=== PATIENT | female | born 1930 | race Caucasian/White ===

== ENCOUNTER 2018-08-15 09:16 | Inpatient (IN) | payer BC, MEDICARE ==
[2018-08-15] MEDS: IPRATROPIUM (NEB) 0.5 MG/2.5 ML AMP INH (10:01)
[2018-08-15] MEDS: ALBUTEROL 0.083% (NEB) 2.5 MG/3 ML AMP INH (10:01)
[2018-08-15 10:24] LABS: ADD MAN DIFF? NO
[2018-08-15 10:32] LABS: WHITE BLOOD COUNT 7.4 10^3/ul (4.8-10.8)
[2018-08-15 10:32] LABS: BASOPHIL # 0.1 10^3/ul (0.0-0.1); BASOPHILS % 0.9 % (0.0-2.0); EOSINOPHILS # 0.3 10^3/ul (0.0-0.5); EOSINOPHILS % 4.3 % (0.0-7.0); HEMOGLOBIN 12.3 g/dl (12.0-16.0); LYMPHOCYTES # 0.7 10^3/ul (0.8-2.9); LYMPHOCYTES % 9.5 % (15.0-51.0); MEAN CORPUSCULAR HEMOGLOBIN 29.5 pg (29.0-33.0); MEAN CORPUSCULAR HGB CONC 34.2 g/dl (32.0-37.0); MEAN CORPUSCULAR VOLUME 86.3 fl (82.0-101.0); MEAN PLATELET VOLUME 7.9 fl (7.4-10.4); MONOCYTE # 0.6 10^3/ul (0.3-0.9); MONOCYTES % 7.6 % (0.0-11.0); NEUTROPHIL # 5.7 10^3/ul (1.6-7.5); NEUTROPHILS % 77.3 % (39.0-77.0); PLATELET COUNT 355 10^3/UL (140-415); RED BLOOD COUNT 4.17 10^6/ul (4.20-5.40); RED CELL DISTRIBUTION WIDTH 13.4 % (11.5-14.5)
[2018-08-15] MEDS: SOD CHLORIDE 0.9% 500 ML IV (10:40)
[2018-08-15] MEDS: CEFTRIAXONE 1 GM/50 ML (PMX) 50 ML IVPB (10:41)
[2018-08-15 10:58] LABS: ANION GAP 12 (5-13); BLOOD UREA NITROGEN 8 mg/dl (7-20); CALCIUM 8.9 mg/dl (8.4-10.2); CARBON DIOXIDE 27 mmol/L (21-31); CHLORIDE 85 mmol/L (97-110); CREATININE 0.54 mg/dl (0.44-1.00); GLUCOSE 126 mg/dl (70-220); POTASSIUM 4.5 mmol/L (3.5-5.1); SODIUM 124 mmol/L (135-144)
[2018-08-15 11:07] LABS: TROPONIN-I < 0.012 ng/ml (0.000-0.120)
[2018-08-15] MEDS: AZITHROMYCIN 500MG/NS (PMX) 250 ML IV (11:30)
[2018-08-15 11:51] LABS: LACTIC ACID 0.9 mmol/L (0.5-2.0)
[2018-08-15] MEDS ORDERED: ONDANSETRON 4 MG INJ IV (12:00)
[2018-08-15] MEDS ORDERED: ACETAMINOPHEN 325 MG TAB PO (12:00)
[2018-08-15] MEDS: DEXAMETHASONE 10 MG/ML 1 ML INJ IV (12:37)
[2018-08-15 14:02] LABS: LACTIC ACID 1.2 mmol/L (0.5-2.0)
[2018-08-15] MEDS ORDERED: NACL 0.9% 3 ML SYG IV (16:00)
[2018-08-15] MEDS: SOD CHLORIDE 0.9% 1,000 ML IV (17:18)
[2018-08-15] MEDS: ACETAMINOPHEN 325 MG TAB PO ×2 (17:19→23:35)
[2018-08-15] MEDS: LEVOFLOXACIN 750MG/D5W (PMX) 150 ML IVPB (18:35)
[2018-08-15] MEDS ORDERED: ALBUTEROL/IPRATROPIUM (NEB) 3 ML AMP HHN (20:00)
[2018-08-15] MEDS: GABAPENTIN 300 MG CAP PO (21:00)
[2018-08-15] MEDS: NYSTATIN 30 GM POWDER BTL TOP (21:01)
[2018-08-15] MEDS: ALBUTEROL/IPRATROPIUM (NEB) 3 ML AMP HHN (21:04)
[2018-08-15] MEDS: GUAIFENESIN 20 MG/ML 5ML CUP PO (21:26)
[2018-08-15] MEDS: HEPARIN 5,000 UNIT/1 ML VIAL SC (21:29)
[2018-08-16] MEDS: ALBUTEROL/IPRATROPIUM (NEB) 3 ML AMP HHN ×5 (01:49→22:30)
[2018-08-16] MEDS: HEPARIN 5,000 UNIT/1 ML VIAL SC ×3 (05:54→21:39)
[2018-08-16 06:12] LABS: ADD MAN DIFF? NO
[2018-08-16] MEDS: SOD CHLORIDE 0.9% 1,000 ML IV ×3 (06:18→20:36)
[2018-08-16 06:23] LABS: WHITE BLOOD COUNT 4.6 10^3/ul (4.8-10.8)
[2018-08-16 06:23] LABS: ABNORMAL IP MESSAGE 1; BASOPHILS % 0.4 % (0.0-2.0); HEMOGLOBIN 11.5 g/dl (12.0-16.0); LYMPHOCYTES # 0.5 10^3/ul (0.8-2.9); LYMPHOCYTES % 11.9 % (15.0-51.0); MEAN CORPUSCULAR HEMOGLOBIN 29.6 pg (29.0-33.0); MEAN CORPUSCULAR HGB CONC 34.8 g/dl (32.0-37.0); MEAN CORPUSCULAR VOLUME 85.1 fl (82.0-101.0); MEAN PLATELET VOLUME 8.2 fl (7.4-10.4); MONOCYTE # 0.6 10^3/ul (0.3-0.9); NEUTROPHIL # 3.4 10^3/ul (1.6-7.5); NEUTROPHILS % 73.8 % (39.0-77.0); PLATELET COUNT 320 10^3/UL (140-415); RED BLOOD COUNT 3.88 10^6/ul (4.20-5.40); RED CELL DISTRIBUTION WIDTH 13.3 % (11.5-14.5)
[2018-08-16 06:37] LABS: POSITIVE DIFF @See below
[2018-08-16 06:54] LABS: ALANINE AMINOTRANSFERASE 28 IU/L (13-69); ALBUMIN 3.6 g/dl (3.3-4.9); ALBUMIN/GLOBULIN RATIO 1.16; ALKALINE PHOSPHATASE 41 IU/L (42-121); ANION GAP 11 (5-13); ASPARTATE AMINO TRANSFERASE 28 IU/L (15-46); BILIRUBIN,INDIRECT 0.8 mg/dl (0-1.1); BILIRUBIN,TOTAL 0.8 mg/dl (0.2-1.3); BLOOD UREA NITROGEN 7 mg/dl (7-20); CALCIUM 8.6 mg/dl (8.4-10.2); CARBON DIOXIDE 24 mmol/L (21-31); CHLORIDE 90 mmol/L (97-110); CHOL/HDL RATIO 1.8 RATIO; CHOLESTEROL 125 mg/dl (100-200); CREATININE 0.55 mg/dl (0.44-1.00); GLUCOSE 108 mg/dl (70-220); HDL CHOLESTEROL 67 mg/dl (33-92); LDL CHOLESTEROL,CALCULATED 49 mg/dl; MAGNESIUM 1.8 mg/dl (1.7-2.5); PHOSPHORUS 2.6 mg/dl (2.5-4.9); POTASSIUM 4.1 mmol/L (3.5-5.1); SODIUM 125 mmol/L (135-144); TOTAL PROTEIN 6.7 g/dl (6.1-8.1); TRIGLYCERIDES 46 mg/dl (0-149)
[2018-08-16] MEDS ORDERED: VANCOMYCIN IV PER PHARMACY XX (07:00)
[2018-08-16 07:11] LABS: FREE THYROXINE INDEX (Calc) 2.69 ug/ml (0.65-3.89); T3 UPTAKE 40.1 % (23.5-40.5); T4 (THYROXINE) 6.7 ug/dl (5.5-11.0)
[2018-08-16] MEDS: VANCOMYCIN HCL 1.25 GM in SOD CHLORIDE 0.9% 250 ML IVPB (08:53)
[2018-08-16] MEDS: GABAPENTIN 300 MG CAP PO ×3 (08:54→21:36)
[2018-08-16] MEDS: FLUTICASONE/VILANTEROL 100-25 INH (08:54)
[2018-08-16] MEDS: TIOTROPIUM 18 MCG CAPSULE INHA DEV INH (08:54)
[2018-08-16] MEDS: FAMOTIDINE 20 MG INJ IV ×2 (08:54→21:35)
[2018-08-16] MEDS: SPIRONOLACTONE 25 MG TAB PO (08:54)
[2018-08-16] MEDS: METOPROLOL (XL) 50 MG TAB PO (08:55)
[2018-08-16] MEDS: LOSARTAN 50 MG TAB PO (08:55)
[2018-08-16] MEDS: NYSTATIN 30 GM POWDER BTL TOP ×2 (08:56→21:36)
[2018-08-16] MEDS: SODIUM CHLORIDE 1 GM TAB PO ×2 (13:23→21:35)
[2018-08-16] MEDS: GUAIFENESIN 20 MG/ML 5ML CUP PO (21:43)
[2018-08-17] MEDS: ACETAMINOPHEN 325 MG TAB PO ×2 (00:40→23:16)
[2018-08-17] MEDS: ALBUTEROL/IPRATROPIUM (NEB) 3 ML AMP HHN ×4 (03:35→21:53)
[2018-08-17] MEDS: SOD CHLORIDE 0.9% 1,000 ML IV ×3 (06:41→23:17)
[2018-08-17] MEDS: HEPARIN 5,000 UNIT/1 ML VIAL SC ×3 (06:48→21:04)
[2018-08-17] MEDS: GABAPENTIN 300 MG CAP PO ×3 (08:36→21:00)
[2018-08-17] MEDS: FAMOTIDINE 20 MG INJ IV ×2 (08:36→21:00)
[2018-08-17] MEDS: TIOTROPIUM 18 MCG CAPSULE INHA DEV INH (08:36)
[2018-08-17] MEDS: FLUTICASONE/VILANTEROL 100-25 INH (08:36)
[2018-08-17] MEDS: SPIRONOLACTONE 25 MG TAB PO (08:37)
[2018-08-17] MEDS: LOSARTAN 50 MG TAB PO (08:37)
[2018-08-17] MEDS: SODIUM CHLORIDE 1 GM TAB PO ×3 (08:37→21:00)
[2018-08-17] MEDS: METOPROLOL (XL) 50 MG TAB PO (08:37)
[2018-08-17] MEDS: NYSTATIN 30 GM POWDER BTL TOP ×2 (08:38→21:00)
[2018-08-17] MEDS: VANCOMYCIN 1 GM 250 ML IVPB (09:08)
[2018-08-17] MEDS: GUAIFENESIN 20 MG/ML 5ML CUP PO (21:03)
[2018-08-18] MEDS: SOD CHLORIDE 0.9% 1,000 ML IV (01:12)
[2018-08-18] MEDS: ALBUTEROL/IPRATROPIUM (NEB) 3 ML AMP HHN ×4 (02:00→21:25)
[2018-08-18 05:45] LABS: ADD MAN DIFF? NO
[2018-08-18 05:46] LABS: ABNORMAL IP MESSAGE 1; BASOPHIL # 0.1 10^3/ul (0.0-0.1); BASOPHILS % 0.8 % (0.0-2.0); EOSINOPHILS # 0.2 10^3/ul (0.0-0.5); EOSINOPHILS % 2.4 % (0.0-7.0); HEMATOCRIT 36.5 % (37.0-47.0); HEMOGLOBIN 11.8 g/dl (12.0-16.0); LYMPHOCYTES # 0.5 10^3/ul (0.8-2.9); LYMPHOCYTES % 5.1 % (15.0-51.0); MEAN CORPUSCULAR HGB CONC 32.3 g/dl (32.0-37.0); MEAN CORPUSCULAR VOLUME 89.7 fl (82.0-101.0); MONOCYTE # 0.9 10^3/ul (0.3-0.9); MONOCYTES % 10.1 % (0.0-11.0); NEUTROPHIL # 7.5 10^3/ul (1.6-7.5); NEUTROPHILS % 80.9 % (39.0-77.0); PLATELET COUNT 338 10^3/UL (140-415); RED BLOOD COUNT 4.07 10^6/ul (4.20-5.40); RED CELL DISTRIBUTION WIDTH 14.2 % (11.5-14.5)
[2018-08-18 05:46] LABS: WHITE BLOOD COUNT 9.2 10^3/ul (4.8-10.8)
[2018-08-18 05:48] LABS: POSITIVE DIFF @See below
[2018-08-18 06:09] LABS: ANION GAP 6 (5-13); BLOOD UREA NITROGEN 7 mg/dl (7-20); CALCIUM 8.1 mg/dl (8.4-10.2); CARBON DIOXIDE 29 mmol/L (21-31); CHLORIDE 102 mmol/L (97-110); CREATININE 0.52 mg/dl (0.44-1.00); GLUCOSE 117 mg/dl (70-220); POTASSIUM 3.6 mmol/L (3.5-5.1); SODIUM 137 mmol/L (135-144)
[2018-08-18] MEDS: HEPARIN 5,000 UNIT/1 ML VIAL SC ×3 (06:36→22:29)
[2018-08-18] MEDS: GUAIFENESIN 20 MG/ML 5ML CUP PO ×2 (06:37→21:20)
[2018-08-18] MEDS: ACETAMINOPHEN 325 MG TAB PO ×2 (06:37→16:47)
[2018-08-18] MEDS: ALENDRONATE 70 MG TAB PO (08:49)
[2018-08-18] MEDS: TIOTROPIUM 18 MCG CAPSULE INHA DEV INH (08:50)
[2018-08-18] MEDS: FLUTICASONE/VILANTEROL 100-25 INH (08:50)
[2018-08-18] MEDS: NYSTATIN 30 GM POWDER BTL TOP ×2 (08:51→21:20)
[2018-08-18] MEDS: VANCOMYCIN 1 GM 250 ML IVPB (08:52)
[2018-08-18] MEDS: GABAPENTIN 300 MG CAP PO ×3 (08:52→21:20)
[2018-08-18] MEDS: SODIUM CHLORIDE 1 GM TAB PO ×3 (08:52→21:20)
[2018-08-18] MEDS: SPIRONOLACTONE 25 MG TAB PO (08:53)
[2018-08-18] MEDS: METOPROLOL (XL) 50 MG TAB PO (08:53)
[2018-08-18] MEDS: FAMOTIDINE 20 MG INJ IV (08:53)
[2018-08-18] MEDS: LOSARTAN 50 MG TAB PO (08:53)
[2018-08-18 15:31] LABS: B-TYPE NATRIURETIC PEPTIDE 1800 PG/ML (0-450)
[2018-08-18] MEDS: FUROSEMIDE 20 MG INJ IV (16:34)
[2018-08-18] MEDS: hydrALAzine 20 MG INJ IV (16:48)
[2018-08-18] MEDS: METHYLPREDNISOLONE 125 MG INJ IV (17:20)
[2018-08-18] MEDS: SOD CHLORIDE 0.9% 100 ML (17:45)
[2018-08-18] MEDS: IOHEXOL 100 ML (17:45)
[2018-08-18] MEDS: FAMOTIDINE 20 MG TAB PO (21:20)
[2018-08-18] MEDS: POLYETHYLENE GLYCOL 17 GM PACKET PO (21:20)
[2018-08-18] MEDS: LABETALOL 100 MG TAB PO (22:09)
[2018-08-19] MEDS: METHYLPREDNISOLONE 125 MG INJ IV ×2 (00:08→06:00)
[2018-08-19] MEDS: ALBUTEROL/IPRATROPIUM (NEB) 3 ML AMP HHN ×5 (02:10→20:00)
[2018-08-19] MEDS: ACETAMINOPHEN 325 MG TAB PO ×2 (03:14→10:35)
[2018-08-19] MEDS: GUAIFENESIN 20 MG/ML 5ML CUP PO ×2 (03:14→09:53)
[2018-08-19 05:21] LABS: ADD MAN DIFF? NO
[2018-08-19 05:23] LABS: ABNORMAL IP MESSAGE 1; BASOPHILS % 0.3 % (0.0-2.0); HEMATOCRIT 39.8 % (37.0-47.0); HEMOGLOBIN 13.3 g/dl (12.0-16.0); LYMPHOCYTES # 0.3 10^3/ul (0.8-2.9); MEAN CORPUSCULAR HEMOGLOBIN 29.6 pg (29.0-33.0); MEAN CORPUSCULAR HGB CONC 33.4 g/dl (32.0-37.0); MEAN CORPUSCULAR VOLUME 88.4 fl (82.0-101.0); MEAN PLATELET VOLUME 7.8 fl (7.4-10.4); MONOCYTE # 0.1 10^3/ul (0.3-0.9); MONOCYTES % 0.9 % (0.0-11.0); NEUTROPHIL # 6.2 10^3/ul (1.6-7.5); NEUTROPHILS % 93.3 % (39.0-77.0); PLATELET COUNT 341 10^3/UL (140-415); RED CELL DISTRIBUTION WIDTH 13.8 % (11.5-14.5)
[2018-08-19 05:23] LABS: WHITE BLOOD COUNT 6.6 10^3/ul (4.8-10.8)
[2018-08-19 05:31] LABS: POSITIVE DIFF @See below
[2018-08-19 06:00] LABS: ANION GAP 8 (5-13); BLOOD UREA NITROGEN 9 mg/dl (7-20); CALCIUM 8.9 mg/dl (8.4-10.2); CARBON DIOXIDE 35 mmol/L (21-31); CHLORIDE 93 mmol/L (97-110); CREATININE 0.46 mg/dl (0.44-1.00); GLUCOSE 150 mg/dl (70-220); POTASSIUM 4.3 mmol/L (3.5-5.1); SODIUM 136 mmol/L (135-144)
[2018-08-19] MEDS: HEPARIN 5,000 UNIT/1 ML VIAL SC ×3 (06:00→21:07)
[2018-08-19 06:06] LABS: PHOSPHORUS 2.8 mg/dl (2.5-4.9)
[2018-08-19 08:43] LABS: VANCOMYCIN,TROUGH 6.5 ug/ml (10.0-20.0)
[2018-08-19 09:44] LABS: AADO2 Arterial 78.4 mmHg (7.0-24.0); Allen Test ACCEPTAB; Arterial Base Excess 6.5 mmol/L (-3.0-3); Arterial Blood Gas Oxygen Sat 93.7 mmHG (95.0-100.0); Arterial COHb 0.7 % (0.0-3.0); Arterial Fraction of Oxyhgb 92.8 % (93.0-99.0); Arterial HCO3 33.5 mmol/L (22.0-26.0); Arterial MetHb 0.3 % (0.0-1.5); Arterial pCO2 57.9 mmhg (35-45); MODE NASAL CANNULA; Site Right Radial
[2018-08-19] MEDS: VANCOMYCIN 1 GM 250 ML IVPB (09:53)
[2018-08-19] MEDS: POLYETHYLENE GLYCOL 17 GM PACKET PO ×2 (09:53→20:50)
[2018-08-19] MEDS: FAMOTIDINE 20 MG TAB PO ×2 (09:53→20:51)
[2018-08-19] MEDS: SPIRONOLACTONE 25 MG TAB PO (09:53)
[2018-08-19] MEDS: LOSARTAN 50 MG TAB PO (09:54)
[2018-08-19] MEDS: SODIUM CHLORIDE 1 GM TAB PO ×3 (09:54→20:50)
[2018-08-19] MEDS: TIOTROPIUM 18 MCG CAPSULE INHA DEV INH (09:54)
[2018-08-19] MEDS: METOPROLOL (XL) 50 MG TAB PO (09:54)
[2018-08-19] MEDS: FUROSEMIDE 20 MG INJ IV ×2 (09:55→17:29)
[2018-08-19] MEDS: GABAPENTIN 300 MG CAP PO ×3 (09:56→20:51)
[2018-08-19] MEDS: NYSTATIN 30 GM POWDER BTL TOP ×2 (09:57→20:51)
[2018-08-19] MEDS: FLUTICASONE/VILANTEROL 100-25 INH (09:58)
[2018-08-19] MEDS: LEVOFLOXACIN 500MG/D5W (PMX) 100 ML IVPB (13:16)
[2018-08-19] MEDS: ACETYLCYSTEINE 20% 4 ML VIAL NEB ×2 (14:10→19:59)
[2018-08-19] MEDS: METHYLPREDNISOLONE 40 MG INJ IV ×2 (14:24→20:51)
[2018-08-19] MEDS: BISACODYL (EC) 5 MG TAB PO (14:36)
[2018-08-19 20:47] LABS: AADO2 Arterial 144.2 mmHg (7.0-24.0); Allen Test ACCEPTAB; Arterial Base Excess 9.3 mmol/L (-3.0-3); Arterial Blood Gas Oxygen Sat 95.7 mmHG (95.0-100.0); Arterial COHb 0.6 % (0.0-3.0); Arterial Fraction of Oxyhgb 95.1 % (93.0-99.0); Arterial HCO3 35.4 mmol/L (22.0-26.0); Arterial MetHb 0 % (0.0-1.5); Arterial pCO2 53.8 mmhg (35-45); MODE MASK - BIPAP; Site Left Radial
[2018-08-19] MEDS ORDERED: VANCOMYCIN 750 MG (PMX) 250 ML IVPB (21:00)
[2018-08-20] MEDS: ALBUTEROL/IPRATROPIUM (NEB) 3 ML AMP HHN ×6 (01:15→21:26)
[2018-08-20] MEDS: ACETYLCYSTEINE 20% 4 ML VIAL NEB ×4 (01:15→21:26)
[2018-08-20] MEDS: METHYLPREDNISOLONE 40 MG INJ IV ×3 (05:33→20:11)
[2018-08-20] MEDS: HEPARIN 5,000 UNIT/1 ML VIAL SC ×3 (06:16→20:16)
[2018-08-20 06:52] LABS: ADD MAN DIFF? NO
[2018-08-20 07:00] LABS: ABNORMAL IP MESSAGE 1; BASOPHILS % 0.1 % (0.0-2.0); HEMATOCRIT 40.7 % (37.0-47.0); HEMOGLOBIN 13.5 g/dl (12.0-16.0); LYMPHOCYTES # 0.5 10^3/ul (0.8-2.9); LYMPHOCYTES % 6.6 % (15.0-51.0); MEAN CORPUSCULAR HEMOGLOBIN 29.1 pg (29.0-33.0); MEAN CORPUSCULAR HGB CONC 33.2 g/dl (32.0-37.0); MEAN CORPUSCULAR VOLUME 87.7 fl (82.0-101.0); MEAN PLATELET VOLUME 7.8 fl (7.4-10.4); MONOCYTE # 0.5 10^3/ul (0.3-0.9); MONOCYTES % 7.1 % (0.0-11.0); NEUTROPHIL # 6.1 10^3/ul (1.6-7.5); NEUTROPHILS % 85.6 % (39.0-77.0); PLATELET COUNT 404 10^3/UL (140-415); RED BLOOD COUNT 4.64 10^6/ul (4.20-5.40); RED CELL DISTRIBUTION WIDTH 13.7 % (11.5-14.5)
[2018-08-20 07:00] LABS: WHITE BLOOD COUNT 7.2 10^3/ul (4.8-10.8)
[2018-08-20 07:04] LABS: POSITIVE DIFF @See below
[2018-08-20 07:17] LABS: ANION GAP 8 (5-13); BLOOD UREA NITROGEN 20 mg/dl (7-20); CALCIUM 8.9 mg/dl (8.4-10.2); CARBON DIOXIDE 36 mmol/L (21-31); CHLORIDE 92 mmol/L (97-110); GLUCOSE 134 mg/dl (70-220); MAGNESIUM 2.2 mg/dl (1.7-2.5); POTASSIUM 3.8 mmol/L (3.5-5.1); SODIUM 136 mmol/L (135-144)
[2018-08-20 07:17] LABS: PHOSPHORUS 3.3 mg/dl (2.5-4.9)
[2018-08-20 07:49] LABS: ADD UMIC YES; UR AMORPHOUS CRYSTAL FEW /HPF (NONE SEEN); UR ASCORBIC ACID NEGATIVE (NEGATIVE); UR BILIRUBIN (Dip) NEGATIVE (NEGATIVE); UR BLOOD (Dip) NEGATIVE (NEGATIVE); UR CLARITY SLIGHTLY CLOUDY (CLEAR); UR COLOR YELLOW (YELLOW); UR GLUCOSE (Dip) NEGATIVE (NEGATIVE); UR KETONES (Dip) 1+ mg/dL (NEGATIVE); UR LEUKOCYTE ESTERASE (Dip) NEGATIVE Leu/ul (NEGATIVE); UR MUCUS FEW /HPF (NONE SEEN); UR NITRITE (Dip) NEGATIVE (NEGATIVE); UR RBC 1 /HPF (0-5); UR SPECIFIC GRAVITY (Dip) 1.019 (1.003-1.030); UR TOTAL PROTEIN (Dip) 2+ mg/dl (NEGATIVE); UR UROBILINOGEN (Dip) NEGATIVE (NEGATIVE); UR WBC 3 /HPF (0-5)
[2018-08-20] MEDS: NYSTATIN 30 GM POWDER BTL TOP ×2 (08:33→20:11)
[2018-08-20] MEDS: FLUTICASONE/VILANTEROL 100-25 INH (08:33)
[2018-08-20] MEDS: POLYETHYLENE GLYCOL 17 GM PACKET PO ×2 (08:35→20:11)
[2018-08-20] MEDS: SPIRONOLACTONE 25 MG TAB PO (08:36)
[2018-08-20] MEDS: GABAPENTIN 300 MG CAP PO ×3 (08:36→20:11)
[2018-08-20] MEDS: LOSARTAN 50 MG TAB PO (08:36)
[2018-08-20] MEDS: SODIUM CHLORIDE 1 GM TAB PO ×3 (08:36→20:11)
[2018-08-20] MEDS: FAMOTIDINE 20 MG TAB PO ×2 (08:37→20:11)
[2018-08-20] MEDS: METOPROLOL (XL) 50 MG TAB PO (08:37)
[2018-08-20] MEDS: TIOTROPIUM 18 MCG CAPSULE INHA DEV INH (10:06)
[2018-08-20 11:36] LABS: B-TYPE NATRIURETIC PEPTIDE 1060 PG/ML (0-450)
[2018-08-20] MEDS: FUROSEMIDE 20 MG INJ IV (11:58)
[2018-08-20] MEDS: LEVOFLOXACIN 500MG/D5W (PMX) 100 ML IVPB (11:58)
[2018-08-20] MEDS: FLUCONAZOLE 100 MG TAB PO (15:43)
[2018-08-20] MEDS: CEFEPIME 1GM/50 ML (PMX) 50 ML IVPB ×2 (15:43→23:08)
[2018-08-20] MEDS: BISACODYL (EC) 5 MG TAB PO (15:43)
[2018-08-20] MEDS ORDERED: LORAZEPAM 1 MG TAB PO (22:30)
[2018-08-20] MEDS ORDERED: ACETAMINOPHEN 325 MG TAB PO (22:30)
[2018-08-21] MEDS: ACETYLCYSTEINE 20% 4 ML VIAL NEB ×4 (01:44→19:59)
[2018-08-21] MEDS: ALBUTEROL/IPRATROPIUM (NEB) 3 ML AMP HHN ×6 (01:44→19:59)
[2018-08-21] MEDS: METHYLPREDNISOLONE 40 MG INJ IV ×3 (04:41→21:07)
[2018-08-21] MEDS: HEPARIN 5,000 UNIT/1 ML VIAL SC ×3 (04:46→21:51)
[2018-08-21 08:11] LABS: ADD MAN DIFF? NO
[2018-08-21 08:22] LABS: ABNORMAL IP MESSAGE 1; BASOPHILS % 0.2 % (0.0-2.0); HEMATOCRIT 39.9 % (37.0-47.0); HEMOGLOBIN 13.2 g/dl (12.0-16.0); LYMPHOCYTES # 0.3 10^3/ul (0.8-2.9); MEAN CORPUSCULAR HEMOGLOBIN 29.5 pg (29.0-33.0); MEAN CORPUSCULAR HGB CONC 33.1 g/dl (32.0-37.0); MEAN CORPUSCULAR VOLUME 89.3 fl (82.0-101.0); MEAN PLATELET VOLUME 7.8 fl (7.4-10.4); MONOCYTE # 0.6 10^3/ul (0.3-0.9); MONOCYTES % 5.9 % (0.0-11.0); NEUTROPHIL # 8.4 10^3/ul (1.6-7.5); NEUTROPHILS % 90.4 % (39.0-77.0); PLATELET COUNT 395 10^3/UL (140-415); RED BLOOD COUNT 4.47 10^6/ul (4.20-5.40); RED CELL DISTRIBUTION WIDTH 13.5 % (11.5-14.5)
[2018-08-21 08:22] LABS: WHITE BLOOD COUNT 9.3 10^3/ul (4.8-10.8)
[2018-08-21 08:23] LABS: POSITIVE DIFF @See below
[2018-08-21] MEDS: CEFEPIME 1GM/50 ML (PMX) 50 ML IVPB ×2 (08:32→20:42)
[2018-08-21] MEDS: FLUTICASONE/VILANTEROL 100-25 INH (08:34)
[2018-08-21] MEDS: POLYETHYLENE GLYCOL 17 GM PACKET PO ×2 (08:34→20:42)
[2018-08-21] MEDS: LOSARTAN 50 MG TAB PO (08:35)
[2018-08-21] MEDS: FAMOTIDINE 20 MG TAB PO ×2 (08:36→20:42)
[2018-08-21] MEDS: FLUCONAZOLE 100 MG TAB PO (08:36)
[2018-08-21] MEDS: GABAPENTIN 300 MG CAP PO ×3 (08:36→20:42)
[2018-08-21] MEDS: SODIUM CHLORIDE 1 GM TAB PO ×3 (08:36→20:42)
[2018-08-21] MEDS: NYSTATIN 30 GM POWDER BTL TOP ×2 (08:36→21:09)
[2018-08-21] MEDS: METOPROLOL (XL) 50 MG TAB PO (08:36)
[2018-08-21] MEDS: SPIRONOLACTONE 25 MG TAB PO (08:36)
[2018-08-21 08:47] LABS: ANION GAP 7 (5-13); BLOOD UREA NITROGEN 28 mg/dl (7-20); CALCIUM 8.6 mg/dl (8.4-10.2); CARBON DIOXIDE 38 mmol/L (21-31); CHLORIDE 94 mmol/L (97-110); CREATININE 0.62 mg/dl (0.44-1.00); GLUCOSE 141 mg/dl (70-220); POTASSIUM 3.3 mmol/L (3.5-5.1); SODIUM 139 mmol/L (135-144)
[2018-08-21 10:13] LABS: PHOSPHORUS 3.8 mg/dl (2.5-4.9)
[2018-08-21 10:13] LABS: MAGNESIUM 2.4 mg/dl (1.7-2.5)
[2018-08-21] MEDS: MAGNESIUM CITRATE 300 ML BTL PO (10:44)
[2018-08-21] MEDS: POTASSIUM CHLORIDE 20 MEQ POWDER FOR ORAL SOLN PO (11:25)
[2018-08-21] MEDS: FUROSEMIDE 20 MG INJ IV (11:25)
[2018-08-21] MEDS: ONDANSETRON 4 MG INJ IV (20:52)
[2018-08-22] MEDS: ALBUTEROL/IPRATROPIUM (NEB) 3 ML AMP HHN ×6 (01:21→19:26)
[2018-08-22] MEDS: ACETYLCYSTEINE 20% 4 ML VIAL NEB ×4 (01:21→19:26)
[2018-08-22 03:12] LABS: AADO2 Arterial 483.7 mmHg (7.0-24.0); Arterial Base Excess 12.8 mmol/L (-3.0-3); Arterial Blood Gas Oxygen Sat 98.2 mmHG (95.0-100.0); Arterial COHb 0.3 % (0.0-3.0); Arterial Fraction of Oxyhgb 97.8 % (93.0-99.0); Arterial HCO3 43.8 mmol/L (22.0-26.0); Arterial MetHb 0.1 % (0.0-1.5); Blood Gas PS 10; MODE MASK - BIPAP; Site Right Brachial
[2018-08-22] MEDS: METHYLPREDNISOLONE 40 MG INJ IV ×3 (06:30→21:08)
[2018-08-22] MEDS: HEPARIN 5,000 UNIT/1 ML VIAL SC ×3 (07:19→21:10)
[2018-08-22 07:40] LABS: Allen Test ACCEPTAB; Arterial Base Excess 13.8 mmol/L (-3.0-3); Arterial Blood Gas Oxygen Sat 94.7 mmHG (95.0-100.0); Arterial COHb 0.4 % (0.0-3.0); Arterial Fraction of Oxyhgb 94.2 % (93.0-99.0); Arterial HCO3 42.4 mmol/L (22.0-26.0); Arterial MetHb 0.1 % (0.0-1.5); Blood Gas IEPAP 18/5; Blood Gas PS 13; MODE MASK - BIPAP; Site Right Radial
[2018-08-22] MEDS: FLUCONAZOLE 100 MG TAB PO (08:01)
[2018-08-22] MEDS: LOSARTAN 50 MG TAB PO (08:01)
[2018-08-22] MEDS: METOPROLOL (XL) 50 MG TAB PO (08:02)
[2018-08-22] MEDS: FLUTICASONE/VILANTEROL 100-25 INH (08:03)
[2018-08-22] MEDS: SPIRONOLACTONE 25 MG TAB PO (08:03)
[2018-08-22] MEDS: GABAPENTIN 300 MG CAP PO ×3 (08:03→21:07)
[2018-08-22] MEDS: SODIUM CHLORIDE 1 GM TAB PO ×3 (08:03→21:07)
[2018-08-22] MEDS: FAMOTIDINE 20 MG TAB PO ×2 (08:03→21:08)
[2018-08-22] MEDS: NYSTATIN 30 GM POWDER BTL TOP (08:04)
[2018-08-22] MEDS: CEFEPIME 1GM/50 ML (PMX) 50 ML IVPB ×2 (08:04→21:07)
[2018-08-22] MEDS: POLYETHYLENE GLYCOL 17 GM PACKET PO ×2 (08:04→21:00)
[2018-08-22 08:28] LABS: ADD MAN DIFF? NO
[2018-08-22 08:38] LABS: WHITE BLOOD COUNT 8.4 10^3/ul (4.8-10.8)
[2018-08-22 08:38] LABS: ABNORMAL IP MESSAGE 1; BASOPHILS % 0.1 % (0.0-2.0); HEMATOCRIT 42.7 % (37.0-47.0); HEMOGLOBIN 13.3 g/dl (12.0-16.0); LYMPHOCYTES # 0.3 10^3/ul (0.8-2.9); LYMPHOCYTES % 3.9 % (15.0-51.0); MEAN CORPUSCULAR HEMOGLOBIN 28.7 pg (29.0-33.0); MEAN CORPUSCULAR HGB CONC 31.1 g/dl (32.0-37.0); MONOCYTE # 0.6 10^3/ul (0.3-0.9); MONOCYTES % 7.4 % (0.0-11.0); NEUTROPHIL # 7.3 10^3/ul (1.6-7.5); NEUTROPHILS % 87.9 % (39.0-77.0); PLATELET COUNT 392 10^3/UL (140-415); RED BLOOD COUNT 4.64 10^6/ul (4.20-5.40)
[2018-08-22 08:42] LABS: POSITIVE DIFF @See below
[2018-08-22 08:57] LABS: BLOOD UREA NITROGEN 33 mg/dl (7-20); CALCIUM 8.8 mg/dl (8.4-10.2); CHLORIDE 95 mmol/L (97-110); CREATININE 0.72 mg/dl (0.44-1.00); GLUCOSE 143 mg/dl (70-220); POTASSIUM 4.1 mmol/L (3.5-5.1); SODIUM 142 mmol/L (135-144)
[2018-08-22 08:59] LABS: MAGNESIUM 3.3 mg/dl (1.7-2.5)
[2018-08-22 08:59] LABS: PHOSPHORUS 3.8 mg/dl (2.5-4.9)
[2018-08-22 09:07] LABS: ANION GAP 5 (5-13); CARBON DIOXIDE 42 mmol/L (21-31)
[2018-08-22] MEDS: traMADol 50 MG TAB PO (12:32)
[2018-08-23] MEDS: hydrALAzine 20 MG INJ IV (00:12)
[2018-08-23] MEDS: NYSTATIN 30 GM POWDER BTL TOP ×3 (00:16→21:00)
[2018-08-23] MEDS: ACETYLCYSTEINE 20% 4 ML VIAL NEB ×3 (00:48→20:47)
[2018-08-23] MEDS: ALBUTEROL/IPRATROPIUM (NEB) 3 ML AMP HHN ×4 (00:48→20:46)
[2018-08-23] MEDS: METHYLPREDNISOLONE 40 MG INJ IV ×3 (05:40→22:20)
[2018-08-23] MEDS: HEPARIN 5,000 UNIT/1 ML VIAL SC ×3 (05:44→22:29)
[2018-08-23 06:56] LABS: ADD MAN DIFF? NO
[2018-08-23 07:00] LABS: WHITE BLOOD COUNT 10.4 10^3/ul (4.8-10.8)
[2018-08-23 07:00] LABS: ABNORMAL IP MESSAGE 1; BASOPHILS % 0.1 % (0.0-2.0); HEMATOCRIT 45.1 % (37.0-47.0); HEMOGLOBIN 13.6 g/dl (12.0-16.0); LYMPHOCYTES # 0.4 10^3/ul (0.8-2.9); LYMPHOCYTES % 4.1 % (15.0-51.0); MEAN CORPUSCULAR HEMOGLOBIN 28.7 pg (29.0-33.0); MEAN CORPUSCULAR HGB CONC 30.2 g/dl (32.0-37.0); MEAN CORPUSCULAR VOLUME 95.1 fl (82.0-101.0); MEAN PLATELET VOLUME 8.1 fl (7.4-10.4); MONOCYTE # 0.7 10^3/ul (0.3-0.9); MONOCYTES % 7.1 % (0.0-11.0); NEUTROPHIL # 9.1 10^3/ul (1.6-7.5); NEUTROPHILS % 87.1 % (39.0-77.0); PLATELET COUNT 386 10^3/UL (140-415); RED BLOOD COUNT 4.74 10^6/ul (4.20-5.40); RED CELL DISTRIBUTION WIDTH 13.8 % (11.5-14.5)
[2018-08-23 07:20] LABS: POSITIVE DIFF @See below
[2018-08-23 07:22] LABS: BLOOD UREA NITROGEN 35 mg/dl (7-20); CALCIUM 8.8 mg/dl (8.4-10.2); CHLORIDE 95 mmol/L (97-110); CREATININE 0.62 mg/dl (0.44-1.00); GLUCOSE 146 mg/dl (70-220); POTASSIUM 4.8 mmol/L (3.5-5.1); SODIUM 140 mmol/L (135-144)
[2018-08-23 07:25] LABS: MAGNESIUM 3.3 mg/dl (1.7-2.5)
[2018-08-23 07:25] LABS: PHOSPHORUS 3.5 mg/dl (2.5-4.9)
[2018-08-23 07:39] LABS: ANION GAP 3 (5-13)
[2018-08-23 07:40] LABS: CARBON DIOXIDE 42 mmol/L (21-31)
[2018-08-23] MEDS: CEFEPIME 1GM/50 ML (PMX) 50 ML IVPB ×2 (08:45→22:20)
[2018-08-23 09:58] LABS: AADO2 Arterial 588.4 mmHg (7.0-24.0); Arterial Base Excess 12.9 mmol/L (-3.0-3); Arterial COHb 0.2 % (0.0-3.0); Arterial Fraction of Oxyhgb 91.8 % (93.0-99.0); Arterial HCO3 40.1 mmol/L (22.0-26.0); Arterial MetHb 0 % (0.0-1.5); Arterial pCO2 61.8 mmhg (35-45); Blood Gas IEPAP 18/5; MODE MASK - BIPAP; Site LB
[2018-08-23] MEDS: POLYETHYLENE GLYCOL 17 GM PACKET PO ×2 (10:24→22:23)
[2018-08-23] MEDS: FLUTICASONE/VILANTEROL 100-25 INH (10:24)
[2018-08-23] MEDS: LOSARTAN 50 MG TAB PO (10:25)
[2018-08-23] MEDS: FLUCONAZOLE 100 MG TAB PO (10:25)
[2018-08-23] MEDS: SODIUM CHLORIDE 1 GM TAB PO ×3 (10:25→22:23)
[2018-08-23] MEDS: SPIRONOLACTONE 25 MG TAB PO (10:26)
[2018-08-23] MEDS: GABAPENTIN 300 MG CAP PO ×3 (10:26→22:20)
[2018-08-23] MEDS: FAMOTIDINE 20 MG TAB PO ×2 (10:26→22:20)
[2018-08-23] MEDS: METOPROLOL (XL) 50 MG TAB PO (10:27)
[2018-08-23] MEDS: traMADol 50 MG TAB PO (19:57)
[2018-08-24] MEDS: ALBUTEROL/IPRATROPIUM (NEB) 3 ML AMP HHN ×6 (01:14→20:07)
[2018-08-24] MEDS: ACETYLCYSTEINE 20% 4 ML VIAL NEB ×4 (01:14→20:07)
[2018-08-24] MEDS: hydrALAzine 20 MG INJ IV (01:36)
[2018-08-24] MEDS: KETOROLAC 15 MG INJ IV ×2 (05:26→08:47)
[2018-08-24] MEDS: METHYLPREDNISOLONE 40 MG INJ IV ×3 (05:28→22:07)
[2018-08-24] MEDS: HEPARIN 5,000 UNIT/1 ML VIAL SC ×3 (05:35→22:17)
[2018-08-24 06:57] LABS: ADD MAN DIFF? NO
[2018-08-24 07:07] LABS: WHITE BLOOD COUNT 15.8 10^3/ul (4.8-10.8)
[2018-08-24 07:07] LABS: ABNORMAL IP MESSAGE 1; BASOPHIL # 0.1 10^3/ul (0.0-0.1); BASOPHILS % 0.3 % (0.0-2.0); HEMATOCRIT 44.7 % (37.0-47.0); LYMPHOCYTES # 0.5 10^3/ul (0.8-2.9); LYMPHOCYTES % 2.9 % (15.0-51.0); MEAN CORPUSCULAR HEMOGLOBIN 28.9 pg (29.0-33.0); MEAN CORPUSCULAR HGB CONC 31.3 g/dl (32.0-37.0); MEAN CORPUSCULAR VOLUME 92.4 fl (82.0-101.0); MEAN PLATELET VOLUME 8.1 fl (7.4-10.4); MONOCYTE # 1.3 10^3/ul (0.3-0.9); NEUTROPHIL # 13.7 10^3/ul (1.6-7.5); PLATELET COUNT 426 10^3/UL (140-415); RED BLOOD COUNT 4.84 10^6/ul (4.20-5.40); RED CELL DISTRIBUTION WIDTH 13.6 % (11.5-14.5)
[2018-08-24 07:20] LABS: POSITIVE DIFF @See below
[2018-08-24 07:24] LABS: MAGNESIUM 2.8 mg/dl (1.7-2.5)
[2018-08-24 07:24] LABS: PHOSPHORUS 2.2 mg/dl (2.5-4.9)
[2018-08-24 07:29] LABS: ANION GAP 6 (5-13); BLOOD UREA NITROGEN 33 mg/dl (7-20); CALCIUM 9.3 mg/dl (8.4-10.2); CARBON DIOXIDE 37 mmol/L (21-31); CHLORIDE 99 mmol/L (97-110); CREATININE 0.56 mg/dl (0.44-1.00); GLUCOSE 157 mg/dl (70-220); POTASSIUM 4.5 mmol/L (3.5-5.1); SODIUM 142 mmol/L (135-144)
[2018-08-24] MEDS: CEFEPIME 1GM/50 ML (PMX) 50 ML IVPB ×2 (08:46→22:07)
[2018-08-24] MEDS: SODIUM CHLORIDE 1 GM TAB PO ×3 (08:47→21:00)
[2018-08-24] MEDS: FAMOTIDINE 20 MG TAB PO ×2 (08:48→21:00)
[2018-08-24] MEDS: LOSARTAN 50 MG TAB PO (08:48)
[2018-08-24] MEDS: GABAPENTIN 300 MG CAP PO ×3 (08:48→21:00)
[2018-08-24] MEDS: FLUCONAZOLE 100 MG TAB PO (08:48)
[2018-08-24] MEDS: POLYETHYLENE GLYCOL 17 GM PACKET PO ×2 (08:49→21:00)
[2018-08-24] MEDS: METOPROLOL (XL) 50 MG TAB PO (08:49)
[2018-08-24] MEDS: FLUTICASONE/VILANTEROL 100-25 INH (08:49)
[2018-08-24] MEDS: SPIRONOLACTONE 25 MG TAB PO (08:49)
[2018-08-24] MEDS: NYSTATIN 30 GM POWDER BTL TOP ×2 (09:12→21:00)
[2018-08-24] MEDS: HALOPERIDOL 5 MG INJ IV (11:00)
[2018-08-25] MEDS: hydrALAzine 20 MG INJ IV (00:23)
[2018-08-25] MEDS: KETOROLAC 15 MG INJ IV ×2 (01:10→14:27)
[2018-08-25] MEDS: ALBUTEROL/IPRATROPIUM (NEB) 3 ML AMP HHN ×6 (01:14→20:29)
[2018-08-25] MEDS: ACETYLCYSTEINE 20% 4 ML VIAL NEB ×4 (01:14→20:30)
[2018-08-25] MEDS: HALOPERIDOL 5 MG INJ IV (01:23)
[2018-08-25] MEDS: LORAZEPAM 2 MG INJ IV ×3 (03:01→15:11)
[2018-08-25] MEDS: METHYLPREDNISOLONE 40 MG INJ IV ×2 (05:43→13:25)
[2018-08-25] MEDS: HEPARIN 5,000 UNIT/1 ML VIAL SC ×2 (06:05→13:30)
[2018-08-25 06:34] LABS: ADD MAN DIFF? NO
[2018-08-25 06:41] LABS: ABNORMAL IP MESSAGE 1; BASOPHILS % 0.2 % (0.0-2.0); HEMATOCRIT 47.1 % (37.0-47.0); HEMOGLOBIN 14.7 g/dl (12.0-16.0); LYMPHOCYTES # 0.6 10^3/ul (0.8-2.9); LYMPHOCYTES % 2.6 % (15.0-51.0); MEAN CORPUSCULAR HEMOGLOBIN 28.9 pg (29.0-33.0); MEAN CORPUSCULAR HGB CONC 31.2 g/dl (32.0-37.0); MEAN CORPUSCULAR VOLUME 92.5 fl (82.0-101.0); MEAN PLATELET VOLUME 8.5 fl (7.4-10.4); MONOCYTE # 2.1 10^3/ul (0.3-0.9); MONOCYTES % 9.2 % (0.0-11.0); NEUTROPHIL # 19.6 10^3/ul (1.6-7.5); NEUTROPHILS % 86.6 % (39.0-77.0); NUCLEATED RED BLOOD CELLS% 0.1 /100WBC (0.0-0.0); PLATELET COUNT 396 10^3/UL (140-415); RED BLOOD COUNT 5.09 10^6/ul (4.20-5.40); RED CELL DISTRIBUTION WIDTH 14.2 % (11.5-14.5)
[2018-08-25 06:41] LABS: WHITE BLOOD COUNT 22.6 10^3/ul (4.8-10.8)
[2018-08-25 06:47] LABS: POSITIVE DIFF @See below
[2018-08-25 07:22] LABS: ANION GAP 6 (5-13); BLOOD UREA NITROGEN 34 mg/dl (7-20); CALCIUM 9.6 mg/dl (8.4-10.2); CARBON DIOXIDE 40 mmol/L (21-31); CHLORIDE 98 mmol/L (97-110); CREATININE 0.68 mg/dl (0.44-1.00); GLUCOSE 153 mg/dl (70-220); POTASSIUM 3.9 mmol/L (3.5-5.1); SODIUM 144 mmol/L (135-144)
[2018-08-25 07:23] LABS: MAGNESIUM 2.8 mg/dl (1.7-2.5)
[2018-08-25 07:23] LABS: PHOSPHORUS 2.1 mg/dl (2.5-4.9)
[2018-08-25] MEDS: GABAPENTIN 300 MG CAP PO ×3 (09:00→20:15)
[2018-08-25] MEDS: FLUCONAZOLE 100 MG TAB PO (09:00)
[2018-08-25] MEDS: FLUTICASONE/VILANTEROL 100-25 INH (09:00)
[2018-08-25] MEDS: SPIRONOLACTONE 25 MG TAB PO (09:00)
[2018-08-25] MEDS: METOPROLOL (XL) 50 MG TAB PO (09:00)
[2018-08-25] MEDS: FAMOTIDINE 20 MG TAB PO ×2 (09:00→20:15)
[2018-08-25] MEDS: LOSARTAN 50 MG TAB PO (09:00)
[2018-08-25] MEDS: SODIUM CHLORIDE 1 GM TAB PO ×3 (09:00→20:14)
[2018-08-25] MEDS: POLYETHYLENE GLYCOL 17 GM PACKET PO ×2 (09:00→20:14)
[2018-08-25] MEDS: CEFEPIME 1GM/50 ML (PMX) 50 ML IVPB (10:12)
[2018-08-25] MEDS: NYSTATIN 30 GM POWDER BTL TOP ×2 (10:19→20:15)
[2018-08-25] MEDS ORDERED: VANCOMYCIN IV PER PHARMACY XX (15:00)
[2018-08-25] MEDS: VANCOMYCIN 1.25 GM/NS 250 ML 250 ML IVPB (17:02)
[2018-08-25] MEDS: MEROPENEM 1 GM/50ML(PMX) 50 ML IVPB (20:16)
[2018-08-26] MEDS: ALBUTEROL/IPRATROPIUM (NEB) 3 ML AMP HHN ×5 (00:52→21:55)
[2018-08-26] MEDS: ACETYLCYSTEINE 20% 4 ML VIAL NEB ×2 (00:52→08:08)
[2018-08-26] MEDS: METHYLPREDNISOLONE 40 MG INJ IV ×3 (03:12→13:55)
[2018-08-26] MEDS: LORAZEPAM 2 MG INJ IV ×4 (03:13→21:42)
[2018-08-26] MEDS: HEPARIN 5,000 UNIT/1 ML VIAL SC ×3 (03:24→14:03)
[2018-08-26] MEDS: VANCOMYCIN 750 MG (PMX) 250 ML IVPB (04:14)
[2018-08-26] MEDS: NYSTATIN 30 GM POWDER BTL TOP (08:49)
[2018-08-26] MEDS: SPIRONOLACTONE 25 MG TAB PO (09:00)
[2018-08-26] MEDS: POLYETHYLENE GLYCOL 17 GM PACKET PO (09:00)
[2018-08-26] MEDS: METOPROLOL (XL) 50 MG TAB PO (09:00)
[2018-08-26] MEDS: FLUTICASONE/VILANTEROL 100-25 INH (09:00)
[2018-08-26] MEDS: LOSARTAN 50 MG TAB PO (09:00)
[2018-08-26] MEDS: GABAPENTIN 300 MG CAP PO ×2 (09:00→13:00)
[2018-08-26] MEDS: FAMOTIDINE 20 MG TAB PO (09:00)
[2018-08-26] MEDS: SODIUM CHLORIDE 1 GM TAB PO ×2 (09:00→13:00)
[2018-08-26] MEDS: MEROPENEM 1 GM/50ML(PMX) 50 ML IVPB (09:20)
[2018-08-26] MEDS: METOPROLOL 5 MG INJ IV (10:10)
[2018-08-26] MEDS ORDERED: ALBUTEROL/IPRATROPIUM (NEB) 3 ML AMP HHN (17:30)
[2018-08-26] MEDS ORDERED: ATROPINE 1% 5 ML OPH SL (17:30)
[2018-08-26] MEDS ORDERED: ONDANSETRON 4 MG INJ IV (17:30)
[2018-08-26] MEDS: morphine 2 MG INJ IV ×2 (18:10→20:42)
[2018-08-27] MEDS: LORAZEPAM 2 MG INJ IV ×3 (01:24→09:38)
[2018-08-27] MEDS: ALBUTEROL/IPRATROPIUM (NEB) 3 ML AMP HHN ×3 (02:09→08:56)
[2018-08-27] MEDS: morphine 2 MG INJ IV ×2 (05:46→07:48)
[2018-08-27 06:04] LABS: ADD MAN DIFF? NO
[2018-08-27 06:08] LABS: ABNORMAL IP MESSAGE 1; BASOPHIL # 0.1 10^3/ul (0.0-0.1); BASOPHILS % 0.2 % (0.0-2.0); HEMATOCRIT 44.8 % (37.0-47.0); LYMPHOCYTES # 0.3 10^3/ul (0.8-2.9); LYMPHOCYTES % 1.6 % (15.0-51.0); MEAN CORPUSCULAR HEMOGLOBIN 29.4 pg (29.0-33.0); MEAN CORPUSCULAR HGB CONC 31.3 g/dl (32.0-37.0); MEAN CORPUSCULAR VOLUME 94.1 fl (82.0-101.0); MEAN PLATELET VOLUME 9.4 fl (7.4-10.4); MONOCYTE # 1.1 10^3/ul (0.3-0.9); NEUTROPHIL # 19.9 10^3/ul (1.6-7.5); NEUTROPHILS % 91.8 % (39.0-77.0); RED BLOOD COUNT 4.76 10^6/ul (4.20-5.40); RED CELL DISTRIBUTION WIDTH 14.9 % (11.5-14.5)
[2018-08-27 06:08] LABS: WHITE BLOOD COUNT 21.7 10^3/ul (4.8-10.8)
[2018-08-27 06:18] LABS: PLATELET COUNT 244 10^3/UL (140-415); POSITIVE DIFF @See below
== END 2018-08-27 10:56 | disposition expired | DRG 193 ==
LOC: TEL 08-19 18:15 → 2NE 08-27 01:06 → E/R 09:16 → 2NE 11:58
PROC: 5A09557 Assistance with Respiratory Ventilation, Greater than 96 Consecutive Hours, Continuous Positive Airway Pressure (ICD-10-PCS; principal; 2018-08-19)
DX: J18.9 Pneumonia, unspecified organism (principal); J96.01 Acute respiratory failure with hypoxia; J96.02 Acute respiratory failure with hypercapnia; J44.0 Chronic obstructive pulmonary disease with (acute) lower respiratory infection; E87.1 Hypo-osmolality and hyponatremia; J44.1 Chronic obstructive pulmonary disease with (acute) exacerbation; J20.9 Acute bronchitis, unspecified; G62.9 Polyneuropathy, unspecified; Z66 Do not resuscitate; I11.0 Hypertensive heart disease with heart failure; I50.9 Heart failure, unspecified; M81.0 Age-related osteoporosis without current pathological fracture; Z51.5 Encounter for palliative care
CPT/HCPCS: 36415; 36600; 71045; 71275; 80048; 80053; 80061; 80202; 81001; 82803; 82962; 83036; 83605; 83735; 83880; 84100; 84436; 84443; 84479; 84484; 85025; 87040-91; 87070; 87086; 93005; 93306; 94640; 94660; 94664; 94667; 94668; 96365; 96367; 97110; 97162; 97530; 99285-25